=== PATIENT | female | born 1960 | race Caucasian/White ===

== ENCOUNTER 2020-12-08 18:08 | Emergency (ER) | payer OTHER ==
[2020-12-08 19:36] VITALS: BP 114/56; PULSE 93; TEMP 98; BMI 33.0
[2020-12-08 20:15] LABS: HEMATOCRIT 46.2 % (32.4-45.2); HEMOGLOBIN 15.8 GM/dl (10.7-15.3); MCH 28.1 pg (25.7-33.7); MCHC 34.1 g/dl (32.0-36.0); MEAN CELL VOLUME 82.3 fl (80-96); MEAN PLT VOLUME 8.9 fl (7.5-11.1); PLATELET COUNT 318 K/MM3 (134-434); RBC 5.61 M/mm3 (3.60-5.2); RDW 12.2 % (11.6-15.6); WHITE BLOOD COUNT 13.2 K/mm3 (4.0-10.8)
[2020-12-08 20:28] LABS: ALBUMIN 4.4 g/dl (3.4-5.0); BILIRUBIN,TOTAL 0.4 mg/dl (0.2-1); CREATININE 0.8 mg/dl (0.55-1.3); TOT PROT 7.3 g/dl (6.4-8.2)
[2020-12-08 20:57] LABS: POTASSIUM 3.7 mmol/L (3.5-5.1)
[2020-12-08 20:59] LABS: CALCIUM 10.3 mg/dL (8.5-10.1)
== END 2020-12-08 21:12 | disposition home or self-care (01) ==
LOC: FER 18:08
DX: T38.3X1A Poisoning by insulin and oral hypoglycemic [antidiabetic] drugs, accidental (unintentional), initial encounter (principal); E11.649 Type 2 diabetes mellitus with hypoglycemia without coma
CPT/HCPCS: 36415; 80053; 82962; 85027; 99283-25